=== PATIENT | female | born 1960 | race Caucasian/White ===

== ENCOUNTER 2022-08-09 08:35 | Emergency (ER) | payer OTHER ==
[~2022-08-09] VITALS: Ht 170.2 cm; Wt 44.5 kg
[2022-08-09] MEDS ORDERED: PROTONIX40 MG PO (09:42)
--- NOTE | 2022-08-10 12:29 | EKG ---
[facility] [address] [facility] [place] [address] Signed Normal sinus rhythm Normal ECG No previous ECGs available Confirmed by Kevin Casarez MD () on 08/10/2022 12:29:26 PM Electronically Signed By: KEVIN CASAREZ MD 08/10/22 1229 PATIENT NAME: ANA GALINDO Electrocardiogram DATE OF : 60 PHYSICIAN: KEVIN CASAREZ MD REPORT #: [id number] REPORT IS CONFIDENTIAL AND NOT TO BE RELEASED WITHOUT AUTHORIZATION
== END 2022-08-09 10:06 | disposition home or self-care (01) ==
LOC: ED 08:35
DX: K21.9 Gastro-esophageal reflux disease without esophagitis (principal)
CPT/HCPCS: 36415; 71045; 80053; 83690; 84484; 85025; 93005; 93010; 99285-25

== ENCOUNTER 2025-02-22 09:59 | Emergency (ER) | payer BC ==
[~2025-02-22] VITALS: Ht 170.2 cm; Wt 63.0 kg
[~2025-02-22 09:59] MED LIST: PROTONIX40 MG PO
--- OUTSIDE RECORDS SUMMARY | 2025-02-22 10:07 | XMS ---
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 E.D. VISIT COUNT (12 MO.) 1 MARTIN Cash TOTAL 1 NOTE: Visits indicate total known visits. ED/UCC VISIT TRACKING (12 MO.) 02/22/2025 10:01 [facility] TYPE: Emergency COMPLAINT: - CHEST PAIN INPATIENT VISIT TRACKING (12 MO.) No inpatient visits to display in this time frame [id number]
[2025-02-22] MEDS ORDERED: ALPRAZOLAM1 MG PO (10:11)
[2025-02-22] MEDS ORDERED: ESCITALOPRAM OX10 MG PO (10:11)
[2025-02-22] MEDS ORDERED: FAMOTIDINE40 MG PO (10:11)
[2025-02-22] MEDS ORDERED: MONTELUKAST SOD10 MG PO (10:12)
[2025-02-22] MEDS ORDERED: PANTOPRAZOLE SO40 MG PO (10:12)
[2025-02-22] MEDS ORDERED: ASPIRIN 81 MG CHEW PO ONE (10:15)
[2025-02-22] MEDS ORDERED: NITROGLYCERIN 0.4 MG SUBL SL PRN (10:15)
[2025-02-22 10:17] LABS: BASOPHILS 0.5 % (0.1-1.2); EOSINOPHILS 1.7 % (0.7-5.8); LYMPHOCYTES 27.9 % (19.3-51.7); MCH 31.3 PG (25.6-32.2); MCHC 34.0 g/dL (32.2-35.5); MCV 92.1 fL (79.4-94.8); MONOCYTES 7.6 % (4.7-12.5); NEUTROPHILS 62.0 % (34.0-71.1); RBC 4.57 M/uL (3.93-5.22)
[2025-02-22 10:40] LABS: ALT (SGPT) 27 U/L (14-59); AST (SGOT) 23 U/L (15-37); GLOMERULAR FILTRATION RATE,EST 70 mL/min (>60); PROTEIN, TOTAL 7.8 g/dL (6.4-8.2); UREA NITROGEN 26 mg/dL (7-18)
[2025-02-22] MEDS ORDERED: DOXYCYCLINE HY100 MG PO (13:02)
[2025-02-22] MEDS ORDERED: NAPROSYN500 MG PO (13:02)
[2025-02-22 13:57] VITALS: BP 126/78
--- NOTE | 2025-02-22 15:25 | EKG ---
[facility] [address] [facility] [place], [place] [address] Signed Normal sinus rhythm Normal ECG When compared with ECG of 09-Aug-2022 08:39:00 No significant change was found Confirmed by Evangelina De Santiago MD ([id number]) on 02/22/2025 3:24:56 PM Electronically Signed By: EVANGELINA DE SANTIAGO MD 02/22/25 1525 PATIENT NAME: ANA PALAFOX Electrocardiogram DATE OF : 60 PHYSICIAN: EVANGELINA DE SANTIAGO MD REPORT #: [id number] REPORT IS CONFIDENTIAL AND NOT TO BE RELEASED WITHOUT AUTHORIZATION
== END 2025-02-22 13:58 | disposition home or self-care (01) ==
LOC: ED 09:59
PROVIDERS: Emergency Medicine
DX: R07.81 Pleurodynia (principal); J18.9 Pneumonia, unspecified organism; K44.9 Diaphragmatic hernia without obstruction or gangrene; K21.9 Gastro-esophageal reflux disease without esophagitis; E78.00 Pure hypercholesterolemia, unspecified; Z79.899 Other long term (current) drug therapy
CPT/HCPCS: 36415; 71045; 71260; 76705; 80053; 83690; 83735; 84484; 85025; 85379; 93005; 93010; 93306; 99284-25; A9270; Q9967